=== PATIENT | female | born 1990 | race American Indian/Alaskan Native ===

== ENCOUNTER 2020-12-17 20:19 | Emergency (ER) | payer OTHER ==
[~2020-12-17] VITALS: Ht 165.1 cm; Wt 84.4 kg
== END 2020-12-17 22:36 | disposition home or self-care (01) ==
LOC: ER 20:19
DX: O20.0 Threatened abortion (principal)

== ENCOUNTER 2020-12-19 23:18 | Emergency (ER) | payer OTHER ==
[~2020-12-19] VITALS: Ht 165.1 cm; Wt 85.7 kg
[2020-12-19] MEDS ORDERED: PRENATALES (23:28)
== END 2020-12-20 08:57 | disposition home or self-care (01) ==
LOC: ER 23:18
DX: O02.1 Missed abortion (principal)